=== PATIENT | female | born 1950 | race Caucasian/White ===

== ENCOUNTER 2017-06-23 09:44 | Inpatient (IN) | payer OTHER ==
[2017-06-23 09:55] VITALS: BMI 35.2
--- NOTE | 2017-06-23 10:00 | PDOC ---
History of Present Illness - General Chief Complaint: Chest Pain Stated Complaint: CHEST PAIN Time Seen by Provider: 06/23/17 10:00 History Source: Patient - History of Present Illness Initial Comments: 66 year old female with PMH of cigarette smoking, hypertension, hypercholesterolemia, pulmonary emboli (IVC clip and on asa + plavix), and HI ( 4 stent placement in 01/2016 with cath in 01/17 demonstrating a fracture of one stent) who presents to the emergency department via EMS for chest pain and SOB since yesteday. States that she has been slightly SOB with worsenign bilateral pitting edema for the past three days and noticed an episode of central substernal, non-radiaiting, non-pleuritic, non-exertional and resolved during her sleep. Her pharmacist technician is Dr. Bosch who is affiliated with Dr. Dela Cruz. Denies recent fevers, chills, nausea, vomiting, or diarrhea. 06/23/17 12:15 Past History - Past Medical History Allergies/Adverse Reactions: Allergies Allergy/AdvReac Type Severity Reaction Status Date / Time No Known Allergies Allergy Unverified 06/23/17 09:50 Home Medications: Ambulatory Orders Albuterol Sulfate Inhaler - [Ventolin Hfa Inhaler -] 1 - 2 inh PO QID 06/23/17 Atorvastatin Ca [Lipitor] 80 mg PO HS 06/23/17 Budesonide/Formeterol Fumarate [SYMBICORT 80/4.5mcg -] 1 inh PO DAILY 06/23/17 Clopidogrel Bisulfate [Clopidogrel] 75 mg PO DAILY 06/23/17 Ipratropium/Albuterol Sulfate [Combivent Respimat Inhal [place]] 4 gm IH DAILY Isosorbide Mononitrate [Imdur -] 60 mg PO DAILY 06/23/17 Lisinopril/Hydrochlorothiazide [Lisinopril-Hctz 10-12.5 mg Tab] 1 each PO DAILY 06/23/17 Tiotropium [place] [Spiriva] 1 inh IH DAILY 06/23/17 Cardiac Disorders: Yes (HI) COPD: Yes HTN: Yes Hypercholesterolemia: Yes - Surgical History Abdominal Surgery: Yes (oopherectomy) Appendectomy: Yes Cardiac Surgery: (PE CLIP SURGERY, 4 stents) - Suicide/Smoking/Psychosocial Hx Smoking History: Former smoker Have you smoked in the past 12 months: No If you are a former smoker, when did you quit?: 2002 Information on smoking cessation initiated: No Hx Alcohol Use: No Drug/Substance Use Hx: No Substance Use Type: None Review of Systems - Review of Systems Constitutional: No: Chills, Diaphoresis, Fever HEENTM: No: Blurred Vision, Recent change in vision Respiratory: Yes: Shortness of Breath, SOB with Exertion. No: Cough Cardiac (ROS): Yes: Chest Pain, Irregular Heart Rate, Palpitations, Chest Tightness. No: Lightheadedness ABD/GI: No: Diarrhea, Nausea, Vomiting : No: Dysuria, Discharge, Incontinence Musculoskeletal: No: Muscle Pain, Muscle Weakness Integumentary: No: Erythema, Flushing, Lesions Neurological: No: Numbness, Paresthesia, Weakness *Physical Exam - Vital Signs Last Vital Signs Temp Pulse Resp BP Pulse Ox 97.8 F 94 H 18 157/81 100 06/23/17 09:50 06/23/17 09:50 06/23/17 09:50 06/23/17 09:50 06/23/17 09:50 - Physical Exam General Appearance: Yes: Nourished, Appropriately Dressed. No: Apparent Distress HEENT: positive: EOMI, TAD, Normal ENT Inspection, Normal Voice Neck: positive: Trachea midline, Normal Thyroid, Supple. negative: Tender, Rigid Respiratory/Chest: positive: Lungs Clear. negative: Chest Tender, Normal Breath Sounds (Slightly diminished breath sounds bilaterally but non-focal and no wheezes, rales, or rhonchi), Respiratory Distress, Accessory Muscle Use Cardiovascular: positive: Regular Rhythm, Regular Rate, Edema (3+ pitting edema to the knees) Gastrointestinal/Abdominal: positive: Normal Bowel Sounds, Flat, Soft. negative : Tender Musculoskeletal: positive: Normal Inspection. negative: Decreased Range of Motion Extremity: positive: Normal Capillary Refill, Normal Inspection, Normal Range of Motion Integumentary: positive: Normal Color, Dry, Warm Neurologic: positive: Fully Oriented, Alert, Normal Mood/Affect, Normal Response , Motor Strength 5/5 ED Treatment Course - LABORATORY CBC & Chemistry Diagram: 06/23/17 11:12 06/23/17 12:52 Medical Decision Making - Medical Decision Making 66 year old female with significant cardiac history without EKG changes compared to 01/17/16 (NSR, nonspecific T wave abnormality, normal axis). Troponin and other labs negative with CXR not demonstrating any pathology. Spoke to Dr. Bosch at [facility] (her pharmacist technician) and he recommended bringing her in and will discuss the case with Dr. Estrada. This is most concerning for unstable angina given her symptoms are not related to exertion and she has multiple stents in place. Admitted patient to [facility] for [facility] Villanueva. 06/23/17 14:33 *DC/Admit/Observation/Transfer Diagnosis at time of Disposition: Chest pain Qualifiers: Chest pain type: unspecified Qualified Code(s): R07.9 - Chest pain, unspecified - Discharge Dispostion Condition at time of disposition: Stable Admit: Yes - Referrals Referrals: Kemal Thompson MD [Primary Care Provider] - - Patient Instructions - Post Discharge Activity
[2017-06-23] MEDS ORDERED: IPRATROPIUM BR 0.02% 0.5 MG/2.5 ML VIAL.NEB. NEB ONE (11:08)
[2017-06-23] MEDS ORDERED: ALBUTEROL SO4 2.5/IPRATROPIUM 0.5 INH SOL 3 ML VIAL.NEB. NEB ONE (11:15)
[2017-06-23 11:21] LABS: BASO % 0.7 % (0-2.0); EOS % 3.3 % (0-4.5); HEMATOCRIT 40.7 % (32.4-45.2); HEMOGLOBIN 13.8 GM/dL (10.7-15.3); LYMPH % 17.6 % (8-40); MCH 29.2 pg (25.7-33.7); MCHC 34.1 g/dl (32.0-36.0); MEAN CELL VOLUME 85.7 fl (80-96); MONO % 5.4 % (3.8-10.2); PLATELET COUNT 221 K/MM3 (134-434); RBC 4.74 M/mm3 (3.60-5.2); WHITE BLOOD COUNT 6.3 K/mm3 (4.0-10.0)
[2017-06-23 11:35] LABS: INR 1.04 (0.82-1.09); PROTHROMBIN TIME (PATIENT) 11.8 SEC (9.98-11.88)
[2017-06-23 11:38] LABS: ACTIVATED PTT 36.7 SECONDS (26.9-34.4)
--- NOTE | 2017-06-23 11:54 | PDOC ---
Attending Attestation - Resident Resident Name: Cynthia Bee - ED Attending Attestation I have performed the following: I have examined & evaluated the patient, The case was reviewed & discussed with the resident, I agree w/resident's findings & plan, Exceptions are as noted - HPI HPI: 06/23/17 11:55 66 F with h/o HTN, HLD, CAD s/p DC 2007 s/p multiple stents, CHF, PAD, COPD, presenting to ED with SOB and CP x 1 day. Pt states that the pain began at rest today. There is associated SOB but pt states that it does not feel like her COPD. She endorses mild leg swelling. Denies F/C. Denies recent travel/ immobilization. States that the pain is similar to her prior DC. - Physicial Exam PE: 06/23/17 12:01 "GENERAL: Awake, alert, and fully oriented, in no acute distress HEAD: No signs of trauma EYES: PERRLA, EOMI, sclera anicteric, conjunctiva clear ENT: Auricles normal inspection, hearing grossly normal, nares patent, oropharynx clear without exudates. Moist mucosa NECK: Nontender, no stepoffs, Normal ROM, supple, no lymphadenopathy, JVD, or masses LUNGS: Breath sounds equal, clear to auscultation bilaterally. No wheezes, and no crackles HEART: Regular rate and rhythm, normal S1 and S2, no murmurs, rubs or gallops ABDOMEN: Soft, nontender, normoactive bowel sounds. No guarding, no rebound. No masses EXTREMITIES: +1 PE BLE NEUROLOGICAL: Cranial nerves II through XII intact. 5/5 strength and sensation in all extremities, Normal speech, normal gait, normal cerebellar function SKIN: Warm, Dry, normal turgor, no rashes or lesions noted. " - Medical Decision Making 06/23/17 12:01 66 F with chest pain/SOB x 1 day. Pt has h/o DC and states pain is similar to her DC, but her EKG today is unremarkable. Pt also with mild pitting edema of legs. Consider CHF exacerbation. Lungs clear but will trial nebulizers given h/ o COPD. - Labs, BNP, trop - CXR - Atrovent (hold albuterol given cardiac history) - Cards consult - Admit
[2017-06-23 13:40] LABS: ALBUMIN 3.8 g/dl (3.4-5.0); ALK PHOS 90 U/L (45-117); ANION GAP 9 (8-16); BILIRUBIN,TOTAL 0.8 mg/dL (0.2-1.0); BLOOD UREA NITROGEN 16 mg/dL (7-18); CALCIUM 9.3 mg/dL (8.5-10.1); CHLORIDE 106 mmol/L (98-107); CO2 27 mmol/L (21-32); CREATININE 0.6 mg/dL (0.55-1.02); GLUCOSE,RANDOM 101 mg/dL (74-106); SGPT/ALT 41 U/L (12-78); SODIUM 142 mmol/L (136-145); TOT PROT 7.1 g/dl (6.4-8.2)
[2017-06-23 13:43] LABS: N-TERMINAL BNP 170.72 pg/ml (5-125)
[2017-06-23 13:45] LABS: POTASSIUM 4.7 mmol/L (3.5-5.1); SGOT/AST 42 U/L (15-37)
[2017-06-23] MEDS ORDERED: NITROGLYCERIN SUBLINGUAL 1/200 0.3 MG BTL SL ONE (15:16)
--- NOTE | 2017-06-23 15:44 | EKG ---
Test Reason : Blood Pressure : / mmHG Vent. Rate : 098 BPM Atrial Rate : 098 BPM P-R Int : 150 ms QRS Dur : 086 ms QT Int : 370 ms P-R-T Axes : 056 -09 021 degrees QTc Int : 472 ms NORMAL SINUS RHYTHM POSSIBLE LEFT ATRIAL ENLARGEMENT INFERIOR INFARCT , AGE UNDETERMINED ABNORMAL ECG WHEN COMPARED WITH ECG OF 17-JAN-2016 06:17, INFERIOR INFARCT IS NOW PRESENT NONSPECIFIC T WAVE ABNORMALITY NO LONGER EVIDENT IN LATERAL LEADS QT HAS LENGTHENED Confirmed by SONJA GONSALES MD ([id number]) on 06/23/2017 3:43:51 PM Referred By: Confirmed By:SONJA GONSALES MD
--- NOTE | 2017-06-23 15:46 | CON.CARD ---
Consult Consult Specialty:: Cardiology Referred by:: Dr. Villanueva Reason for Consultation:: chest pain - History of Present Illness Chief Complaint: Chest pain History of Present Illness: ER record reviewed: " 66 year old female with PMH of cigarette smoking, hypertension, hypercholesterolemia, pulmonary emboli (IVC clip and on asa + plavix), and ND ( 4 stent placement in 01/2016 with cath in 01/17 demonstrating a fracture of one stent) who presents to the emergency department via EMS for chest pain and SOB since yesteday. States that she has been slightly SOB with worsenign bilateral pitting edema for the past three days and noticed an episode of central substernal, non-radiaiting, non-pleuritic, non-exertional and resolved during her sleep. Her food beverage supervisor is Dr. Bosch who is affiliated with Dr. Dela Cruz. 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 She has chronic stable angina requiring nitro; comes to ER now after episodes of substernal chest pressure last night lasting up to 15 minutes associated with mild dyspnea and nausea. Waxing and waning- felt like her prior ND. Also c/o one week of CAMPBELL and worsening b/l le edema. Chronic palpitations, evaluated by Dr. Bosch with Holter- no AFIB reported. No fever or chills. As per Dr. Bosch, her primary food beverage supervisor, she has chronic chest pain complaints which are difficult to evaluate. - History Source History Provided By: Patient Limitations to Obtaining History: No Limitations - Past Medical History Cardio/Vascular: Yes: HTN, Hyperlipdemia Pulmonary: Yes: COPD, Pulmonary Embolus (hx of IVC filter) Gastrointestinal: No: Ascites, Cancer, Constipation, Crohn's Disease, Diverticulitis, Diverticulosis, Esophageal Varices, Gastritis, GERD, GI Bleed, Hemorrhoids, Hiatal Hernia, Inflamatory Bowel Disease, Irritable Bowel Disease, Pancreatitis, Peptic Ulcer Disease, Ulcerative Colitis, Other Hepatobiliary: No: Cirrhosis, Cholelithiasis, Cholecystitis, Choledocholithiasis , Hepatitis A, Hepatitis B, Hepatitis C, Other Renal/: No: Renal Failure, Renal Inusuff, BPH, Cancer, Hematuria, Hemodialysis , Neurogenic Bladder, Renal Calculi, UTI, Other Heme/Onc: No: Anemia, B12 Deficiency, Bleeding Disorder, Cancer, Current Chemotherapy, Current Radiation Therapy, Hemochromatosis, Hypercoaguable State, Myeloproliferative Synd, Sickle Cell Disease, Sickle Cell Trait, Thrombocytopenia, Other Infectious Disease: No: AIDS, C-Diff, Herpes Zoster, HIV, MRSA, STD's, Tuberculosis, VREF, Other Psych: No: Addictions, Anxiety, Bipolar, Depression, Panic, Psychosis, Schizophrenia, Other Musculoskeletal: No: Bursitis, Chronic low back pain, Hemiparesis, Hemiplegia, Osteoarthritis, Paraplegia, Other Rheumatology: No: Fibromyalgia, Gout, Lupus, Rheumatoid Arthritis, Sarcoidosis, Vasculitis, Other ENT: No: Allergic Rhinitis, Sinusitis, Other Endocrine: No: [place]'s Disease, Demetris's Disease, Diabetes Insipidus, Diabetes Mellitus, Hyperparathyroidism, Hyperthyroidism, Hypothyroidism, Osteopenia, SIADH, Other - Past Surgical History Past Surgical History: Yes: Hysterectomy - Alcohol/Substance Use Hx Alcohol Use: No - Smoking History Smoking history: Former smoker Have you smoked in the past 12 months: No If you are a former smoker, when did you quit?: 2002 - Social History History of Recent Travel: No Home Medications - Allergies Allergies/Adverse Reactions: Allergies Allergy/AdvReac Type Severity Reaction Status Date / Time No Known Allergies Allergy Unverified 06/23/17 09:50 - Home Medications Home Medications: Ambulatory Orders Albuterol Sulfate Inhaler - [Ventolin Hfa Inhaler -] 1 - 2 inh PO QID 06/23/17 Atorvastatin Ca [Lipitor] 80 mg PO HS 06/23/17 Budesonide/Formeterol Fumarate [SYMBICORT 80/4.5mcg -] 1 inh PO DAILY 06/23/17 Clopidogrel Bisulfate [Clopidogrel] 75 mg PO DAILY 06/23/17 Ipratropium/Albuterol Sulfate [Combivent Respimat Inhal [place]] 4 gm IH DAILY Isosorbide Mononitrate [Imdur -] 60 mg PO DAILY 06/23/17 Lisinopril/Hydrochlorothiazide [Lisinopril-Hctz 10-12.5 mg Tab] 1 each PO DAILY 06/23/17 Tiotropium [place] [Spiriva] 1 inh IH DAILY 06/23/17 Family Disease History - Family Disease History Family Disease History: CA: Brother (lung) Review of Systems Findings/Remarks: See HPI - Review of Systems Constitutional: reports: No Symptoms Eyes: reports: No Symptoms HENT: reports: No Symptoms Neck: reports: No Symptoms Cardiovascular: reports: Chest Pain, Palpitations, Shortness of Breath Respiratory: reports: SOB on Exertion Gastrointestinal: denies: No Symptoms, Abdominal Pain, Bloating, Constipation, Diarrhea, Dysphagia, Indigestion, Melena, Nausea, Rectal Bleeding, Vomiting, Vomiting Blood, Other Genitourinary: denies: No Symptoms, Burning, Discharge, Dysuria, Flank Pain, Frequency, Hematuria, Incontinence, Lesions, Menses, Pain, Testicular Mass, Testicular Pain, Testicular Swelling, Urgency, Vaginal Bleeding, Other Breasts: denies: No Symptoms Reported, See HPI, Breast Implants, Discharge from Nipple, Lumps, Pain, Skin Changes, Other Musculoskeletal: denies: No Symptoms, Back Pain, Crepitus, Decreased ROM, Extremity Pain, Joint Pain, Joint Swelling, Muscle Pain, Muscle Cramps, Muscle Weakness, Other Neurological: denies: No Symptoms, Change in LOC, Change in Speech, Confusion, Dizziness, Headache, Incoordination, Numbness, Parasthesia, Pre-Existing Deficit , Seizure, Syncope, Tremors, Unsteady Gait, Weakness, Other Endocrine: denies: No Symptoms, Excessive Sweating, Flushing, Increased Hunger, Increased Thirst, Intolerance to Cold, Intolerance to Heat, Unexplained Weight Gain, Unexplained Weight Loss, Other Hematology/Lymphatic: denies: No Symptoms, Easily Bruised, Excessive Bleeding, Swollen Glands, Other Psychiatric: denies: No Symptoms, Altered Sleep Pattern, Anxiety, Depression, Hallucinations, Panic, Paranoia, Suicidal, Other - Risk Factors Known Risk Factors: Yes: Hypercholesterolemia, Smoking, Other (known CAD) Vital Signs: Vital Signs Temperature 97.8 F 06/23/17 09:50 Pulse Rate 84 06/23/17 13:48 Respiratory Rate 18 06/23/17 13:48 Blood Pressure 142/70 06/23/17 13:48 O2 Sat by Pulse Oximetry (%) 100 06/23/17 13:48 Constitutional: Yes: Calm Eyes: Yes: Conjunctiva Clear Neck: Yes: Supple Respiratory: Yes: CTA Bilaterally (no rales or wheezign) Gastrointestinal: Yes: Soft (non-tender), Abdomen, Obese Cardiovascular: Yes: Regular Rate and Rhythm JVD: No Carotid Bruit: No PMI: Non-Displaced Edema: Yes Edema: LLE: 1+, RLE: 1+ Peripheral Pulses WNL: Yes Neurological: Yes: Alert, Oriented ...Motor Strength: WNL - Other Data Labs, Other Data: CBC, BMP 06/23/17 11:12 06/23/17 12:52 INR, PTT INR 1.04 (0.82-1.09) 06/23/17 11:12 Troponin, BNP 06/23/17 06/23/17 06/23/17 11:12 12:52 12:52 Troponin I Cancelled Cancelled < 0.02 B-Natriuretic Peptide Cancelled Cancelled 170.72 H Troponin, BNP 06/23/17 06/23/17 06/23/17 11:12 12:52 12:52 Troponin I Cancelled Cancelled < 0.02 B-Natriuretic Peptide Cancelled Cancelled 170.72 H Laboratory Tests 06/23/17 06/23/17 06/23/17 11:12 11:12 12:52 WBC 6.3 D Hgb 13.8 Plt Count 221 PT with INR 11.80 INR 1.04 PTT (Actin FS) 36.7 H Sodium 142 Potassium 4.7 Chloride 106 Anion Gap 9 BUN 16 Creatinine 0.6 Creat Clearance w eGFR > 60 Total Bilirubin 0.8 D AST 42 H ALT 41 Alkaline Phosphatase 90 Creatine Kinase 220 H Creatine Kinase Index 0.8 CK-MB (CK-2) 1.895 Troponin I < 0.02 B-Natriuretic Peptide 170.72 H NSR, inferior Qs c/w old IWMI, no acute ST changes LAE When c/w previous ECG 2015, inferior Qs now present suggestive of interval likely chronic IWMI Echo: Pending Prior Cardiac Procedures: PTCA with Stent Ejection Fraction %: LVEF > or = 40 % Imaging - Results Chest X-ray: Image Reviewed (No infiltrates or effusions) EKG: Image Reviewed Problem List - Problems (1) Unstable angina Code(s): I20.0 - UNSTABLE ANGINA (2) CAD (coronary artery disease) Code(s): I25.10 - ATHSCL HEART DISEASE OF [place] CORONARY ARTERY W/O ANG PCTRS Qualifiers: Coronary Disease-Associated Artery/Lesion type: [place] artery (3) History of pulmonary embolism Code(s): Z86.711 - PERSONAL HISTORY OF PULMONARY EMBOLISM (4) Presence of IVC filter Code(s): Z95.828 - PRESENCE OF OTHER VASCULAR IMPLANTS AND GRAFTS (5) COPD (chronic obstructive pulmonary disease) Code(s): J44.9 - CHRONIC OBSTRUCTIVE PULMONARY DISEASE, UNSPECIFIED Qualifiers: COPD type: chronic bronchitis (6) Other pulmonary aspergillosis Code(s): B44.1 - OTHER PULMONARY ASPERGILLOSIS Assessment/Plan IMP: Known CAD with prior RCA dissection (iatrogenic) requiring several stents 2016 with sx of unstable angina Known RCA stent fracture 2017, managed medically Moderate residual LAD disease History of PEs, IVC filter COPD REC: 1. Admit to telemetry for serial cardiac enzymes 2. Echo done shows grossly normal LV fxn, no evidence of sig. PHTN, no pericardial effusion. Low clinical supicion for pulmonary embolism 3. Continue ASA, Plavi. Start Lovenox and trend cardiac enzymes and monitor serial ECGs 4. Will need repeat ischemic evaluation, likely with cath prior to discharge. Thank you.
[2017-06-23] MEDS ORDERED: ACETAMINOPHEN 325 MG TABLET (FP) PO PRN (15:49)
[2017-06-23] MEDS ORDERED: NITROGLYCERIN SUBLINGUAL 1/150 0.4 MG TAB ONE (15:50)
--- NOTE | 2017-06-23 15:53 | HP ---
Admitting History and Physical - Primary Care Physician PCP: Callie Villanueva - Admission Chief Complaint: chest pain. History of Present Illness: Pt seen in er. chart reviewed. Er records--reviewed. 66 year old female with PMH of cigarette smoking, hypertension, hypercholesterolemia, pulmonary emboli (IVC clip and on asa + plavix), and [place] ( 4 stent placement in 01/2016 with cath in 01/17 demonstrating a fracture of one stent) who presents to the emergency department via EMS for chest pain and SOB since yesteday. States that she has been slightly SOB with worsenign bilateral pitting edema for the past three days and noticed an episode of central substernal, non-radiaiting, non-pleuritic, non-exertional and resolved during her sleep. Her signal operator linguist is Dr. Bosch who is affiliated with Dr. Dela Cruz. Denies recent fevers, chills, nausea, vomiting, or diarrhea." Case discussed with er physician. Pts private pmd- Pts ekg ok. cm - ve x1 Pt to be admitted to tele . History Source: Patient Limitations to Obtaining History: No Limitations - Past Medical History Cardiovascular: Yes: HTN, Hyperlipdemia Pulmonary: Yes: COPD, Pulmonary Embolus - Smoking History Smoking history: Former smoker Have you smoked in the past 12 months: No If you are a former smoker, when did you quit?: 2002 - Alcohol/Substance Use Hx Alcohol Use: No Home Medications - Allergies Allergies/Adverse Reactions: Allergies Allergy/AdvReac Type Severity Reaction Status Date / Time No Known Allergies Allergy Unverified 06/23/17 09:50 - Home Medications Home Medications: Ambulatory Orders Albuterol Sulfate Inhaler - [Ventolin Hfa Inhaler -] 1 - 2 inh PO QID 06/23/17 Atorvastatin Ca [Lipitor] 80 mg PO HS 06/23/17 Budesonide/Formeterol Fumarate [SYMBICORT 80/4.5mcg -] 1 inh PO DAILY 06/23/17 Clopidogrel Bisulfate [Clopidogrel] 75 mg PO DAILY 06/23/17 Ipratropium/Albuterol Sulfate [Combivent Respimat Inhal [place]] 4 gm IH DAILY Isosorbide Mononitrate [Imdur -] 60 mg PO DAILY 06/23/17 Lisinopril/Hydrochlorothiazide [Lisinopril-Hctz 10-12.5 mg Tab] 1 each PO DAILY 06/23/17 Tiotropium [place] [Spiriva] 1 inh IH DAILY 06/23/17 Family Disease History - Family Disease History Family Disease History: CA: Brother (lung) Review of Systems - Review of Systems Constitutional: reports: Weakness Eyes: reports: No Symptoms Neck: reports: No Symptoms Cardiovascular: reports: Chest Pain, Shortness of Breath Respiratory: reports: SOB Gastrointestinal: reports: No Symptoms Genitourinary: reports: No Symptoms Neurological: reports: No Symptoms Psychiatric: reports: Anxiety Physical Examination Vital Signs: Vital Signs Temperature 97.8 F 06/23/17 09:50 Pulse Rate 84 06/23/17 13:48 Respiratory Rate 18 06/23/17 13:48 Blood Pressure 142/70 06/23/17 13:48 O2 Sat by Pulse Oximetry (%) 100 06/23/17 13:48 Constitutional: Yes: No Distress, Obese Eyes: Yes: Conjunctiva Clear Neck: Yes: Supple Cardiovascular: Yes: Regular Rate and Rhythm Respiratory: Yes: CTA Bilaterally. No: Diminished Gastrointestinal: Yes: Soft Edema: No Neurological: Yes: Alert Psychiatric: Yes: Alert Labs: CBC, BMP 06/23/17 11:12 06/23/17 12:52 Imaging - Results Chest X-ray: Report Reviewed EKG: Report Reviewed (bed side -- echo -- reviewed with Dr. Michaud - when tech was doing echo.) Problem List - Problems (1) Obesity Code(s): E66.9 - OBESITY, UNSPECIFIED (2) CAD (coronary artery disease) Code(s): I25.10 - ATHSCL HEART DISEASE OF [place] CORONARY ARTERY W/O ANG PCTRS Qualifiers: Coronary Disease-Associated Artery/Lesion type: [place] artery (3) COPD (chronic obstructive pulmonary disease) Code(s): J44.9 - CHRONIC OBSTRUCTIVE PULMONARY DISEASE, UNSPECIFIED Qualifiers: COPD type: chronic bronchitis (4) Chest pain Code(s): R07.9 - CHEST PAIN, UNSPECIFIED Qualifiers: Chest pain type: unspecified Qualified Code(s): R07.9 - Chest pain, unspecified (5) History of pulmonary embolism Code(s): Z86.711 - PERSONAL HISTORY OF PULMONARY EMBOLISM (6) Presence of IVC filter Code(s): Z95.828 - PRESENCE OF OTHER VASCULAR IMPLANTS AND GRAFTS (7) Hyperlipidemia Code(s): E78.5 - HYPERLIPIDEMIA, UNSPECIFIED (8) Hypertension Code(s): I10 - ESSENTIAL (PRIMARY) HYPERTENSION (9) Shortness of breath Code(s): R06.02 - SHORTNESS OF BREATH Assessment/Plan Discussed with Dr. Estrada. Monitor on tele serial cms f/u labs. meds reviewed . tom written. Lovenox to be added-- per cardiology recommendation. extensive cardiac h/o as discussed with Dr. Ramirez. Will follow cc time 40 min.
[2017-06-23] MEDS ORDERED: ENOXAPARIN NA (PORCINE) 80 MG/0.8 ML DISP.SYRIN SQ ONE (16:45)
[2017-06-23] MEDS ORDERED: ENOXAPARIN NA (PORCINE) 80 MG/0.8 ML DISP.SYRIN SQ SCH (16:45)
[2017-06-23] MEDS ORDERED: PT OWN MED DRAWER 7, Y5N ONE (21:37)
[2017-06-23] MEDS ORDERED: ASPIRIN 81 MG CHEWABLE TABLETS PO ONE (21:43)
[2017-06-23] MEDS ORDERED: HEPARIN NA (PORCINE) 5,000 UNITS/ML 1ML VIAL SQ SCH (22:00)
[2017-06-23] MEDS: BUDESONIDE/FORMETEROL FUMARATE 80/4.5 mcg INHALER IH SCH (22:55)
[2017-06-23] MEDS: ATORVASTATIN CA 80 MG TABLET (FP) PO SCH (22:56)
[2017-06-23] MEDS: CLOPIDOGREL BISULFATE 75 MG TABLET (FP) PO SCH (22:56)
[2017-06-24] MEDS ORDERED: ALBUTEROL SO4 2.5/IPRATROPIUM 0.5 INH SOL 3 ML VIAL.NEB. NEB PRN (00:16)
[2017-06-24] MEDS ORDERED: PT OWN MED DRAWER 7, Y5N ONE ×2 (06:41→21:18)
[2017-06-24 07:24] LABS: BASO % 0.7 % (0-2.0); EOS % 4.1 % (0-4.5); HEMATOCRIT 35.3 % (32.4-45.2); HEMOGLOBIN 12.3 GM/dL (10.7-15.3); LYMPH % 31.2 % (8-40); MCH 29.8 pg (25.7-33.7); MCHC 34.8 g/dl (32.0-36.0); MEAN CELL VOLUME 85.7 fl (80-96); PLATELET COUNT 193 K/MM3 (134-434); RBC 4.12 M/mm3 (3.60-5.2); RDW 14.1 % (11.6-15.6); WHITE BLOOD COUNT 5.8 K/mm3 (4.0-10.0)
[2017-06-24 07:41] LABS: ALBUMIN 3.3 g/dl (3.4-5.0); ANION GAP 8 (8-16); CHLORIDE 107 mmol/L (98-107); CO2 27 mmol/L (21-32); POTASSIUM 3.4 mmol/L (3.5-5.1); SODIUM 142 mmol/L (136-145)
[2017-06-24 07:50] LABS: ALK PHOS 77 U/L (45-117); BILIRUBIN,TOTAL 0.5 mg/dL (0.2-1.0); BLOOD UREA NITROGEN 15 mg/dL (7-18); CALCIUM 8.9 mg/dL (8.5-10.1); CHOLESTEROL 133 mg/dL (50-200); CREATININE 0.6 mg/dL (0.55-1.02); GLUCOSE,RANDOM 86 mg/dL (74-106); HDL CHOLESTEROL 45 mg/dL (40-60); LDL CHOLESTEROL (ONLY SJRH) 78 mg/dL (5-100); SGOT/AST 23 U/L (15-37); SGPT/ALT 30 U/L (12-78); TOT PROT 6.2 g/dl (6.4-8.2); TRIGLYCERIDES 114 mg/dL (35-160)
--- NOTE | 2017-06-24 09:21 | PN ---
Progress Note, Physician Chief Complaint: Enzymes negative thus far. TELE: NSR, no events. ECHO: Mild to moderate IL HK, overall preserved EF. no sig RV enlargement. No sig PHTN, no effusion. She states she had another episode of SSCP last night after coming to floor. Did not notify RN Lasted 5-10 minutes and subsided spontaneously History of Present Illness: 66F wih COPD, pulmonary aspegillus, recurrent PEs in the s/p IVC filter, CAD s/p PR 2006 medically treated, cath 2016 ([facility]) c/b RCA dissection requiring multiple stents, groin hematoma, subsequent 2017 after abnl stress at [place] showing RCA stent fracture (non-obstructive) and moderate LAD disease. She has chronic stable angina requiring nitro; comes to ER now after episodes of substernal chest pressure last night lasting up to 15 minutes associated with mild dyspnea and nausea. Waxing and waning- felt like her prior PR. Also c/o one week of CAMPBELL and worsening b/l le edema. Chronic palpitations, evaluated by Dr. Bosch with Holter- no AFIB reported. No fever or chills. As per Dr. Bosch, her primary sheet rock installation helper, she has chronic chest pain complaints which are difficult to evaluate. - Current Medication List Current Medications: Active Medications Acetaminophen (Tylenol -) 650 mg PO Q6H PRN PRN Reason: PAIN Albuterol/Ipratropium (Duoneb -) 1 amp NEB QID PRN PRN Reason: WHEEZING Aspirin (Asa -) 81 mg PO DAILY [facility] Atorvastatin Calcium (Lipitor -) 80 mg PO HS [facility] Last Admin: 06/23/17 22:56 Dose: 80 mg Budesonide/Formoterol Fumarate (Symbicort 80/4.5mcg -) 2 puff IH BID [facility] Last Admin: 06/23/17 22:55 Dose: 2 puff Clopidogrel Bisulfate (Plavix -) 75 mg PO DAILY@2200 [facility] Last Admin: 06/23/17 22:56 Dose: 75 mg Enoxaparin Sodium (Lovenox -) 80 mg SQ BID [facility] Hydrochlorothiazide (Hctz -) 12.5 mg PO DAILY [facility] Isosorbide Mononitrate (Imdur -) 60 mg PO DAILY [facility] Lisinopril (Prinivil) 10 mg PO DAILY [facility] Tiotropium [place] (Spiriva -) 1 puff IH DAILY [facility] - Objective Vital Signs: Vital Signs Temperature 98.4 F 06/24/17 09:00 Pulse Rate 83 06/24/17 09:00 Respiratory Rate 20 06/24/17 09:00 Blood Pressure 124/66 06/24/17 09:00 O2 Sat by Pulse Oximetry (%) 98 06/24/17 09:00 Constitutional: Yes: No Distress Eyes: Yes: Conjunctiva Clear Cardiovascular: Yes: Regular Rate and Rhythm Respiratory: Yes: CTA Bilaterally (no rales or wheezing) Gastrointestinal: Yes: Soft (non-tender) Edema: No Neurological: Yes: Alert, Oriented Labs: CBC, BMP 06/24/17 05:10 06/24/17 05:10 INR, PTT INR 1.04 (0.82-1.09) 06/23/17 11:12 Laboratory Tests 06/23/17 06/23/17 06/24/17 12:52 17:45 05:10 WBC 5.8 Hgb 12.3 D Plt Count 193 Sodium Potassium Creatinine Creatine Kinase 220 H 181 Troponin I < 0.02 < 0.02 06/24/17 05:10 WBC Hgb Plt Count Sodium 142 Potassium 3.4 L Creatinine 0.6 Creatine Kinase Pending Troponin I - ....Imaging EKG: Image Reviewed Problem List - Problems (1) Unstable angina Code(s): I20.0 - UNSTABLE ANGINA (2) CAD (coronary artery disease) Code(s): I25.10 - ATHSCL HEART DISEASE OF [place] CORONARY ARTERY W/O ANG PCTRS Qualifiers: Coronary Disease-Associated Artery/Lesion type: [place] artery (3) History of pulmonary embolism Code(s): Z86.711 - PERSONAL HISTORY OF PULMONARY EMBOLISM (4) Presence of IVC filter Code(s): Z95.828 - PRESENCE OF OTHER VASCULAR IMPLANTS AND GRAFTS (5) COPD (chronic obstructive pulmonary disease) Code(s): J44.9 - CHRONIC OBSTRUCTIVE PULMONARY DISEASE, UNSPECIFIED Qualifiers: COPD type: chronic bronchitis (6) Other pulmonary aspergillosis Code(s): B44.1 - OTHER PULMONARY ASPERGILLOSIS Assessment/Plan IMP: Known CAD with prior RCA dissection (iatrogenic) requiring several stents 2016 with sx of unstable angina Known RCA stent fracture 2017, managed medically Moderate residual LAD disease History of PEs, IVC filter COPD REC: 1. Continue Lovenox BID 2. ASA, Plavix, statin Add Beta rebekah, continue Imdur 3. In light of ongoing sx, will plan for transfer to [place] for cath. To remain on telemetry until transfer. Called and spoke to Dr. Mcallister who accepted patient for tx; cath to be done by Dr. Jae Bee at Dr. Bosch's request
[2017-06-24] MEDS ORDERED: ASPIRIN COATED 81 MG TABLET.EC PO SCH (10:00)
[2017-06-24] MEDS ORDERED: CLOPIDOGREL BISULFATE 75 MG TABLET (FP) PO SCH (10:00)
[2017-06-24] MEDS ORDERED: PATIENT'S OWN MEDICATION (NON-FORMULARY) (Lisinopril/Hydrochlorothiazide [Lisinopril-Hctz PO SCH (10:00)
[2017-06-24] MEDS ORDERED: PATIENT'S OWN MEDICATION (NON-FORMULARY) (Ipratropium/Albuterol Sulfate [Combivent Respima IH SCH (10:00)
[2017-06-24] MEDS: ISOSORBIDE MONONITRATE 60 MG TAB.SR.24H (FP) PO SCH (10:17)
[2017-06-24] MEDS: BUDESONIDE/FORMETEROL FUMARATE 80/4.5 mcg INHALER IH SCH ×2 (10:17→21:46)
[2017-06-24] MEDS: METOPROLOL TARTRATE 25 MG TABLET (FP) PO SCH ×2 (10:17→21:19)
[2017-06-24] MEDS: LISINOPRIL 10 MG TABLET (FP) PO SCH (10:17)
[2017-06-24] MEDS: HYDROCHLOROTHIAZIDE 12.5 MG CAPSULE (FP) PO SCH (10:17)
[2017-06-24] MEDS: ASPIRIN 81 MG CHEWABLE TABLETS PO SCH (10:17)
[2017-06-24] MEDS: ENOXAPARIN NA (PORCINE) 80 MG/0.8 ML DISP.SYRIN SQ SCH ×2 (10:19→21:19)
[2017-06-24] MEDS: TIOTROPIUM BROMIDE 18 MCG CAPSULES IH SCH (10:27)
[2017-06-24] MEDS: POTASSIUM CHLORIDE TABS 20 MEQ TABLET.ER (FP) PO SCH (11:27)
--- NOTE | 2017-06-24 11:55 | PN ---
Progress Note, Physician Chief Complaint: had chest pain this AM no palpitations or SOB - Current Medication List Current Medications: Active Medications Acetaminophen (Tylenol -) 650 mg PO Q6H PRN PRN Reason: PAIN Albuterol/Ipratropium (Duoneb -) 1 amp NEB QID PRN PRN Reason: WHEEZING Aspirin (Asa -) 81 mg PO DAILY [facility]S [facility] Last Admin: 06/24/17 10:17 Dose: 81 mg Atorvastatin Calcium (Lipitor -) 80 mg PO HS [facility] 234 BEDS AT [facility] Last Admin: 06/23/17 22:56 Dose: 80 mg Budesonide/Formoterol Fumarate (Symbicort 80/4.5mcg -) 2 puff IH BID [facility] 234 BEDS AT [facility] Last Admin: 06/24/17 10:17 Dose: 2 puff Clopidogrel Bisulfate (Plavix -) 75 mg PO DAILY@2200 [facility]CLUDE 234 BEDS AT [facility] Last Admin: 06/23/17 22:56 Dose: 75 mg Enoxaparin Sodium (Lovenox -) 80 mg SQ BID [facility]CLUDE 234 BEDS AT [facility] Last Admin: 06/24/17 10:19 Dose: 80 mg Hydrochlorothiazide (Hctz -) 12.5 mg PO DAILY [facility]CLUDE 234 BEDS AT [facility] Last Admin: 06/24/17 10:17 Dose: 12.5 mg Isosorbide Mononitrate (Imdur -) 60 mg PO DAILY [facility]CLUDE 234 BEDS AT [facility] Last Admin: 06/24/17 10:17 Dose: 60 mg Lisinopril (Prinivil) 10 mg PO DAILY [facility] 234 BEDS AT [facility] Last Admin: 06/24/17 10:17 Dose: 10 mg Metoprolol Tartrate (Lopressor -) 25 mg PO BID [facility] 234 BEDS AT [facility] Last Admin: 06/24/17 10:17 Dose: 25 mg Potassium Chloride (K-Dur -) 40 meq PO DAILY [facility]CLUDE 234 BEDS AT [facility] Last Admin: 06/24/17 11:27 Dose: 40 meq Tiotropium [place] (Spiriva -) 1 puff IH DAILY [facility] 234 BEDS AT [facility] Last Admin: 06/24/17 10:27 Dose: Not Given - Objective Vital Signs: Vital Signs Temperature 98.4 F 06/24/17 09:00 Pulse Rate 83 06/24/17 09:00 Respiratory Rate 20 06/24/17 09:00 Blood Pressure 124/66 06/24/17 09:00 O2 Sat by Pulse Oximetry (%) 98 06/24/17 09:00 Constitutional: Yes: No Distress Cardiovascular: Yes: Regular Rate and Rhythm Respiratory: Yes: Diminished Gastrointestinal: Yes: Normal Bowel Sounds, Soft. No: Tenderness Edema: Yes Edema: LLE: 1+, RLE: 1+ Labs: CBC, BMP 06/24/17 05:10 06/24/17 05:10 INR, PTT INR 1.04 (0.82-1.09) 06/23/17 11:12 Problem List - Problems (1) CAD (coronary artery disease) Code(s): I25.10 - ATHSCL HEART DISEASE OF [place] CORONARY ARTERY W/O ANG PCTRS Qualifiers: Coronary Disease-Associated Artery/Lesion type: [place] artery (2) COPD (chronic obstructive pulmonary disease) Code(s): J44.9 - CHRONIC OBSTRUCTIVE PULMONARY DISEASE, UNSPECIFIED Qualifiers: COPD type: chronic bronchitis (3) Chest pain Code(s): R07.9 - CHEST PAIN, UNSPECIFIED Qualifiers: Chest pain type: unspecified Qualified Code(s): R07.9 - Chest pain, unspecified (4) Obesity Code(s): E66.9 - OBESITY, UNSPECIFIED (5) Unstable angina Code(s): I20.0 - UNSTABLE ANGINA Assessment/Plan cardiology eval noted continue with meds NTG prn for chest pain for transfer for cardiac cath
[2017-06-24] MEDS: CLOPIDOGREL BISULFATE 75 MG TABLET (FP) PO SCH (21:19)
[2017-06-24] MEDS: ATORVASTATIN CA 80 MG TABLET (FP) PO SCH (21:19)
[2017-06-25 08:03] VITALS: BP 126/72; PULSE 78; TEMP 97.7
--- NOTE | 2017-06-25 08:15 | PN ---
Progress Note, Physician Chief Complaint: TELE: NSR Feels well. Tolerated BB without issue When walks to bathroom, feels some chest tightness, but not as strong as prior to admission. - Current Medication List Current Medications: Active Medications Acetaminophen (Tylenol -) 650 mg PO Q6H PRN PRN Reason: PAIN Albuterol/Ipratropium (Duoneb -) 1 amp NEB QID PRN PRN Reason: WHEEZING Last Admin: 06/24/17 20:35 Dose: 1 amp Aspirin (Asa -) 81 mg PO DAILY [facility] Last Admin: 06/24/17 10:17 Dose: 81 mg Atorvastatin Calcium (Lipitor -) 80 mg PO HS [facility] Last Admin: 06/24/17 21:19 Dose: 80 mg Budesonide/Formoterol Fumarate (Symbicort 80/4.5mcg -) 2 puff IH BID [facility] Last Admin: 06/24/17 21:46 Dose: 2 puff Clopidogrel Bisulfate (Plavix -) 75 mg PO DAILY@2200 [facility] Last Admin: 06/24/17 21:19 Dose: 75 mg Enoxaparin Sodium (Lovenox -) 80 mg SQ BID [facility] Last Admin: 06/24/17 21:19 Dose: 80 mg Hydrochlorothiazide (Hctz -) 12.5 mg PO DAILY [facility] Last Admin: 06/24/17 10:17 Dose: 12.5 mg Isosorbide Mononitrate (Imdur -) 60 mg PO DAILY [facility] Last Admin: 06/24/17 10:17 Dose: 60 mg Lisinopril (Prinivil) 10 mg PO DAILY [facility] Last Admin: 06/24/17 10:17 Dose: 10 mg Metoprolol Tartrate (Lopressor -) 25 mg PO BID [facility] Last Admin: 06/24/17 21:19 Dose: 25 mg Potassium Chloride (K-Dur -) 40 meq PO DAILY [facility] Last Admin: 06/24/17 11:27 Dose: 40 meq Tiotropium [place] (Spiriva -) 1 puff IH DAILY [facility] Last Admin: 06/24/17 10:27 Dose: Not Given - Objective Vital Signs: Vital Signs Temperature 97.7 F 06/25/17 08:02 Pulse Rate 78 06/25/17 08:02 Respiratory Rate 20 06/25/17 08:02 Blood Pressure 126/72 06/25/17 08:02 O2 Sat by Pulse Oximetry (%) 98 06/25/17 07:55 Constitutional: Yes: No Distress Eyes: Yes: Conjunctiva Clear Cardiovascular: Yes: Regular Rate and Rhythm Respiratory: Yes: CTA Bilaterally Gastrointestinal: Yes: Soft (nontender) Edema: No Neurological: Yes: Alert, Oriented ...Motor Strength: WNL Labs: CBC, BMP 06/24/17 05:10 06/24/17 05:10 INR, PTT INR 1.04 (0.82-1.09) 06/23/17 11:12 - ....Imaging EKG: Image Reviewed Problem List - Problems (1) Unstable angina Code(s): I20.0 - UNSTABLE ANGINA (2) CAD (coronary artery disease) Code(s): I25.10 - ATHSCL HEART DISEASE OF [place] CORONARY ARTERY W/O ANG PCTRS Qualifiers: Coronary Disease-Associated Artery/Lesion type: [place] artery (3) History of pulmonary embolism Code(s): Z86.711 - PERSONAL HISTORY OF PULMONARY EMBOLISM (4) Presence of IVC filter Code(s): Z95.828 - PRESENCE OF OTHER VASCULAR IMPLANTS AND GRAFTS (5) COPD (chronic obstructive pulmonary disease) Code(s): J44.9 - CHRONIC OBSTRUCTIVE PULMONARY DISEASE, UNSPECIFIED Qualifiers: COPD type: chronic bronchitis (6) Other pulmonary aspergillosis Code(s): B44.1 - OTHER PULMONARY ASPERGILLOSIS Assessment/Plan IMP: Known CAD with prior RCA dissection (iatrogenic) requiring several stents 2016 with sx of unstable angina Known RCA stent fracture 2017, managed medically Moderate residual LAD disease History of PEs, IVC filter COPD Hypok+ REC: 1. Continue Lovenox BID. Repeat ECG. Repeat BMP to f/u K+ after repletion. 2. ASA, Plavix, statin, Metoprolol added. Continue Imdur 3. In light of ongoing sx, will plan for transfer to [place] for cath. To remain on telemetry until transfer. Called and spoke to Dr. Mcallister who accepted patient for tx; cath to be done by Dr. Jae Bee at Dr. Bosch's request
[2017-06-25] MEDS: ISOSORBIDE MONONITRATE 60 MG TAB.SR.24H (FP) PO SCH (09:43)
[2017-06-25] MEDS: METOPROLOL TARTRATE 25 MG TABLET (FP) PO SCH (09:43)
[2017-06-25] MEDS: ASPIRIN 81 MG CHEWABLE TABLETS PO SCH (09:43)
[2017-06-25] MEDS: ENOXAPARIN NA (PORCINE) 80 MG/0.8 ML DISP.SYRIN SQ SCH (09:43)
[2017-06-25] MEDS: HYDROCHLOROTHIAZIDE 12.5 MG CAPSULE (FP) PO SCH (09:43)
[2017-06-25] MEDS: LISINOPRIL 10 MG TABLET (FP) PO SCH (09:43)
[2017-06-25] MEDS: BUDESONIDE/FORMETEROL FUMARATE 80/4.5 mcg INHALER IH SCH (09:44)
[2017-06-25] MEDS: TIOTROPIUM BROMIDE 18 MCG CAPSULES IH SCH (09:45)
--- NOTE | 2017-06-25 10:36 | PN ---
Progress Note, Physician Chief Complaint: see dc summary - Current Medication List Current Medications: Active Medications Acetaminophen (Tylenol -) 650 mg PO Q6H PRN PRN Reason: PAIN Albuterol/Ipratropium (Duoneb -) 1 amp NEB QID PRN PRN Reason: WHEEZING Last Admin: 06/24/17 20:35 Dose: 1 amp Aspirin (Asa -) 81 mg PO DAILY [facility] Last Admin: 06/25/17 09:43 Dose: 81 mg Atorvastatin Calcium (Lipitor -) 80 mg PO HS [facility] Last Admin: 06/24/17 21:19 Dose: 80 mg Budesonide/Formoterol Fumarate (Symbicort 80/4.5mcg -) 2 puff IH BID [facility] Last Admin: 06/25/17 09:44 Dose: 2 puff Clopidogrel Bisulfate (Plavix -) 75 mg PO DAILY@2200 [facility] Last Admin: 06/24/17 21:19 Dose: 75 mg Enoxaparin Sodium (Lovenox -) 80 mg SQ BID [facility] Last Admin: 06/25/17 09:43 Dose: 80 mg Hydrochlorothiazide (Hctz -) 12.5 mg PO DAILY [facility] Last Admin: 06/25/17 09:43 Dose: 12.5 mg Isosorbide Mononitrate (Imdur -) 60 mg PO DAILY [facility] Last Admin: 06/25/17 09:43 Dose: 60 mg Lisinopril (Prinivil) 10 mg PO DAILY [facility] Last Admin: 06/25/17 09:43 Dose: 10 mg Metoprolol Tartrate (Lopressor -) 25 mg PO BID [facility] Last Admin: 06/25/17 09:43 Dose: 25 mg Potassium Chloride (K-Dur -) 40 meq PO DAILY [facility] Last Admin: 06/24/17 11:27 Dose: 40 meq Tiotropium [place] (Spiriva -) 1 puff IH DAILY [facility] Last Admin: 06/25/17 09:45 Dose: Not Given - Objective Vital Signs: Vital Signs Temperature 97.7 F 06/25/17 08:02 Pulse Rate 78 06/25/17 08:02 Respiratory Rate 20 06/25/17 08:02 Blood Pressure 126/72 06/25/17 08:02 O2 Sat by Pulse Oximetry (%) 98 06/25/17 07:55 Labs: CBC, BMP 06/24/17 05:10 INR, PTT INR 1.04 (0.82-1.09) 06/23/17 11:12 Problem List - Problems (1) CAD (coronary artery disease) Code(s): I25.10 - ATHSCL HEART DISEASE OF [place] CORONARY ARTERY W/O ANG PCTRS Qualifiers: Coronary Disease-Associated Artery/Lesion type: [place] artery (2) COPD (chronic obstructive pulmonary disease) Code(s): J44.9 - CHRONIC OBSTRUCTIVE PULMONARY DISEASE, UNSPECIFIED Qualifiers: COPD type: chronic bronchitis (3) Chest pain Code(s): R07.9 - CHEST PAIN, UNSPECIFIED Qualifiers: Chest pain type: unspecified Qualified Code(s): R07.9 - Chest pain, unspecified (4) Obesity Code(s): E66.9 - OBESITY, UNSPECIFIED (5) Unstable angina Code(s): I20.0 - UNSTABLE ANGINA
--- NOTE | 2017-06-25 10:49 | DS ---
Physical Examination Vital Signs: Vital Signs Temperature 97.7 F 06/25/17 08:02 Pulse Rate 78 06/25/17 08:02 Respiratory Rate 20 06/25/17 08:02 Blood Pressure 126/72 06/25/17 08:02 O2 Sat by Pulse Oximetry (%) 98 06/25/17 07:55 Constitutional: Yes: No Distress Cardiovascular: Yes: Regular Rate and Rhythm Respiratory: Yes: Diminished Gastrointestinal: Yes: Normal Bowel Sounds, Soft. No: Tenderness Edema: Yes Labs: CBC, BMP 06/24/17 05:10 Discharge Summary Reason For Visit: CHEST PAIN/HX OF PE/HYPERTENSION Current Active Problems CAD (coronary artery disease) (Acute) COPD (chronic obstructive pulmonary disease) (Acute) Chest pain (Acute) History of pulmonary embolism (Acute) Obesity (Acute) Other pulmonary aspergillosis (Acute) Presence of IVC filter (Acute) Unstable angina (Acute) Hospital Course: pt admitted here for chest pain seen by Cardiology As she has continued symptoms of chest pain - she is transferred to [facility] for cardiac cath Condition: Guarded - Instructions Referrals: Kemal Thompson MD [Primary Care Provider] - Disposition: TRANSFER ACUTE CARE/OTHER HOSP - Home Medications Comprehensive Discharge Medication List: Ambulatory Orders Albuterol Sulfate Inhaler - [Ventolin Hfa Inhaler -] 1 - 2 inh PO QID 06/23/17 Atorvastatin Ca [Lipitor] 80 mg PO HS 06/23/17 Budesonide/Formeterol Fumarate [SYMBICORT 80/4.5mcg -] 1 inh PO DAILY 06/23/17 Clopidogrel Bisulfate [Clopidogrel] 75 mg PO DAILY 06/23/17 Ipratropium/Albuterol Sulfate [Combivent Respimat Inhal [place]] 3.5 mg NEB QID PRN 06/23/17 Isosorbide Mononitrate [Imdur -] 60 mg PO DAILY 06/23/17 Lisinopril/Hydrochlorothiazide [Lisinopril-Hctz 10-12.5 mg Tab] 1 each PO DAILY 06/23/17 Tiotropium [place] [Spiriva] 1 inh IH DAILY 06/23/17
[2017-06-25] MEDS: POTASSIUM CHLORIDE TABS 20 MEQ TABLET.ER (FP) PO SCH (11:04)
--- NOTE | 2017-06-25 21:25 | EKG ---
Test Reason : Blood Pressure : / mmHG Vent. Rate : 064 BPM Atrial Rate : 064 BPM P-R Int : 156 ms QRS Dur : 090 ms QT Int : 432 ms P-R-T Axes : 054 -07 -12 degrees QTc Int : 445 ms NORMAL SINUS RHYTHM INFERIOR INFARCT (CITED ON OR BEFORE 23-JUN-2017) ABNORMAL ECG WHEN COMPARED WITH ECG OF 23-JUN-2017 13:29, NO SIGNIFICANT CHANGE WAS FOUND Confirmed by FE VALENZUELA MD ([id number]) on 06/25/2017 9:24:50 PM Referred By: Morelia MARC Confirmed By:FE VALENZUELA MD
--- NOTE | 2017-06-25 21:52 | EKG ---
Test Reason : Blood Pressure : / mmHG Vent. Rate : 086 BPM Atrial Rate : 086 BPM P-R Int : 152 ms QRS Dur : 086 ms QT Int : 400 ms P-R-T Axes : 035 -17 -03 degrees QTc Int : 478 ms POOR DATA QUALITY, INTERPRETATION MAY BE ADVERSELY AFFECTED NORMAL SINUS RHYTHM INFERIOR INFARCT (CITED ON OR BEFORE 23-JUN-2017) CANNOT RULE OUT ANTERIOR INFARCT , AGE UNDETERMINED ABNORMAL ECG WHEN COMPARED WITH ECG OF 23-JUN-2017 09:50, NO SIGNIFICANT CHANGE WAS FOUND Confirmed by FE VALENZUELA MD ([id number]) on 06/25/2017 9:52:37 PM Referred By: Confirmed By:FE VALENZUELA MD
== END 2017-06-25 11:23 | disposition short-term general hospital (02) | DRG 303 ==
LOC: JER 09:44 → JERBED 14:47 → J4W 16:30 → OBSVTOIN 06-24 20:17
PROVIDERS: ADMIT Internal Medicine; ATTEND Internal Medicine
DX: I25.110 Atherosclerotic heart disease of native coronary artery with unstable angina pectoris (principal); B44.1 Other pulmonary aspergillosis; J44.9 Chronic obstructive pulmonary disease, unspecified; I25.2 Old myocardial infarction; E78.00 Pure hypercholesterolemia, unspecified; I10 Essential (primary) hypertension; F17.200 Nicotine dependence, unspecified, uncomplicated; E66.9 Obesity, unspecified; Z68.38 Body mass index [BMI] 38.0-38.9, adult; R07.89 Other chest pain; E87.6 Hypokalemia; Z95.5 Presence of coronary angioplasty implant and graft; Z86.711 Personal history of pulmonary embolism; Z95.828 Presence of other vascular implants and grafts
CPT/HCPCS: 36415; 71045-TC-FY; 80048; 80053; 80061; 82550; 82553; 83721; 83880; 84484; 85025; 85610; 85730; 93005; 93010; 93306-TC; 94640; 99285-25; G0378

== ENCOUNTER 2023-10-28 19:49 | Inpatient (IN) | payer OTHER ==
[2023-10-28] MEDS ORDERED: ACETAMINOPHEN INJECTION 100 ML IVPB ONE (21:21)
[2023-10-28] MEDS ORDERED: diphenhydrAMINE HCL 25 MG CAPSULE (FP) PO ONE (21:21)
[2023-10-28] MEDS ORDERED: FUROSEMIDE 40 MG/4 ML INJECTABLE VIAL ONE (21:21)
[2023-10-28] MEDS: diphenhydrAMINE HCL 25 MG CAPSULE (FP) PO ONE (22:24)
[2023-10-28] MEDS: ACETAMINOPHEN 1000 MG/100 ML BAG IVPB ONE (22:24)
[2023-10-28] MEDS: FUROSEMIDE 40 MG/4 ML INJECTABLE VIAL IVPUSH ONE (22:25)
[2023-10-28 22:34] LABS: BASO % 0.6 % (0-2.0); EOS % 7.3 % (0-4.5); HEMOGLOBIN 12.9 GM/dL (10.7-15.3); LYMPH % 21.8 % (8-40); MCH 30.3 pg (25.7-33.7); MCHC 34.9 g/dl (32.0-36.0); MEAN CELL VOLUME 86.8 fl (80-96); MEAN PLT VOLUME 7.4 fl (7.5-11.1); MONO % 7.3 % (3.8-10.2); PLATELET COUNT 258 10^3/uL (134-434); RBC 4.27 M/mm3 (3.60-5.2); RDW 13.8 % (11.6-15.6); WHITE BLOOD COUNT 8.1 K/mm3 (4.0-10.0)
[2023-10-28 22:43] LABS: INR 1.13 (0.83-1.09); PROTHROMBIN TIME (PATIENT) 12.7 SEC (9.7-13.0)
[2023-10-28 22:57] LABS: CHLORIDE 107 mmol/L (98-107); POTASSIUM 4.5 mmol/L (3.5-5.1); SODIUM 139 mmol/L (136-145)
[2023-10-28 22:58] LABS: CALCIUM 9.1 mg/dL (8.5-10.1)
[2023-10-28 23:00] LABS: ALBUMIN 4.1 g/dl (3.4-5.0); ANION GAP 7 mmol/L (4-13); BLOOD UREA NITROGEN 17.5 mg/dL (7-18); CO2 25 mmol/L (21-32); GLUCOSE,RANDOM 95 mg/dL (74-106)
[2023-10-28 23:03] LABS: CREATININE 1.1 mg/dL (0.55-1.3); SGOT/AST 37 U/L (15-37); SGPT/ALT 40 U/L (13-61)
[2023-10-28 23:05] LABS: BILIRUBIN,TOTAL 0.8 mg/dL (0.2-1); TOT PROT 7.7 g/dl (6.4-8.2)
[2023-10-28 23:06] LABS: ALK PHOS 91 U/L (45-117)
[2023-10-28 23:08] LABS: N-TERMINAL BNP 201.5 pg/ml (5-125)
[2023-10-29] MEDS: CEFTRIAXONE 1,000 MG in DEXTROSE 5%-WATER - 50 ML IVPB ONE (00:13)
[2023-10-29] MEDS ORDERED: CEFTRIAXONE 1 GM/50 ML BAG ONE (00:39)
[2023-10-29] MEDS: VANCOMYCIN PREMIX 1.5 GM 1,500 MG/300 ML BAG IVPB ONE (01:36)
[2023-10-29] MEDS: VANCOMYCIN 1,500 MG in DEXTROSE 5%-WATER - 250 ML IVPB ONE (01:38)
[2023-10-29] MEDS: CEFTRIAXONE 1 GM in DEXTROSE 5%-WATER - 50 ML IVPB SCH (10:29)
[2023-10-29] MEDS: SPIRONOLACTONE 25 MG TABLET PO SCH (10:30)
[2023-10-29] MEDS: RANOLAZINE E.R. 500 MG TABLET (FP) PO SCH (10:30)
[2023-10-29] MEDS: amLODIPine BESYLATE 5 MG TABLET (FP) PO SCH (10:31)
[2023-10-29] MEDS: LOSARTAN POTASSIUM 50 MG TABLET PO SCH (10:31)
[2023-10-29] MEDS: ISOSORBIDE MONONITRATE 60 MG TAB.SR.24H (FP) PO SCH (10:31)
[2023-10-29] MEDS: VANCOMYCIN/WATER 1250 MG 1,250 MG/250 ML BAG IVPB SCH ×3 (15:08→15:10)
[2023-10-29 17:39] VITALS: BMI 42.0
[2023-10-29 18:59] LABS: HEPATITIS B SURFACE AG MATERN NON-REACTIVE (NONREACTIVE)
[2023-10-29 19:30] LABS: HIV INTERPRETATION NEGATIVE (NEGATIVE)
[2023-10-29 19:36] LABS: URINE APPEARANCE CLEAR; URINE BILIRUBIN NEGATIVE (NEGATIVE); URINE COLOR YELLOW; URINE GLUCOSE (UA) NEGATIVE (NEGATIVE); URINE KETONE NEGATIVE (NEGATIVE); URINE LEUK ESTERASE NEGATIVE (NEGATIVE); URINE NITRITE NEGATIVE (NEGATIVE); URINE PROTEIN NEGATIVE (NEGATIVE); URINE UROBILINOGEN 0.2 mg/dL (0.2-1.0)
[2023-10-29] MEDS: ATORVASTATIN CA 40 MG TABLET (FP) PO SCH (22:20)
[2023-10-30] MEDS: ENOXAPARIN NA (PORCINE) 40 MG/0.4 ML DISP.SYRIN SQ SCH (10:03)
[2023-10-30 10:44] LABS: BASO % 0.7 % (0-2.0); EOS % 6.4 % (0-4.5); HEMATOCRIT 36.8 % (32.4-45.2); HEMOGLOBIN 12.8 GM/dL (10.7-15.3); MCH 30.3 pg (25.7-33.7); MCHC 34.8 g/dl (32.0-36.0); MEAN CELL VOLUME 86.9 fl (80-96); MEAN PLT VOLUME 7.5 fl (7.5-11.1); MONO % 6.5 % (3.8-10.2); NEUT % 70.4 % (42.8-82.8); PLATELET COUNT 218 10^3/uL (134-434); RBC 4.23 M/mm3 (3.60-5.2); RDW 13.6 % (11.6-15.6)
[2023-10-30 11:00] LABS: POTASSIUM 3.9 mmol/L (3.5-5.1)
[2023-10-30 11:05] LABS: CALCIUM 8.7 mg/dL (8.5-10.1)
[2023-10-30 11:06] LABS: BLOOD UREA NITROGEN 14.1 mg/dL (7-18); MAGNESIUM 1.6 mg/dL (1.8-2.4)
[2023-10-30 11:09] LABS: CREATININE 0.8 mg/dL (0.55-1.3)
[2023-10-30] MEDS: MAGNESIUM 2GM/50ML STERILE WATER IVPB IVPB ONE (12:46)
[2023-10-30] MEDS: diphenhydrAMINE HCL 25 MG CAPSULE (FP) PO ONE (23:38)
[2023-10-31 09:46] LABS: POTASSIUM 4.1 mmol/L (3.5-5.1)
[2023-10-31 10:20] LABS: BLOOD UREA NITROGEN 14.4 mg/dL (7-18); CALCIUM 8.8 mg/dL (8.5-10.1)
[2023-10-31 10:23] LABS: CREATININE 0.9 mg/dL (0.55-1.3); PHOSPHOROUS 3.2 mg/dL (2.5-4.9)
[2023-10-31] MEDS: POLYETHYLENE GLYCOL (HEALTHYLAX) 3350 17 GM PACKET PO SCH (10:50)
[2023-10-31] MEDS: diphenhydrAMINE HCL 25 MG CAPSULE (FP) PO ONE (12:45)
[2023-10-31] MEDS: ACETAMINOPHEN 1000 MG/100 ML BAG IVPB PRN (14:13)
[2023-11-01] MEDS: hydrOXYzine PAMOATE 25 MG CAPSULE (FP) PO PRN (09:55)
[2023-11-01 10:45] LABS: POTASSIUM 4.6 mmol/L (3.5-5.1)
[2023-11-01 10:51] LABS: CALCIUM 8.9 mg/dL (8.5-10.1)
[2023-11-01 10:52] LABS: BLOOD UREA NITROGEN 15.3 mg/dL (7-18)
[2023-11-01 10:54] LABS: MAGNESIUM 1.7 mg/dL (1.8-2.4)
[2023-11-01 10:55] LABS: CREATININE 0.9 mg/dL (0.55-1.3); PHOSPHOROUS 3.4 mg/dL (2.5-4.9)
[2023-11-01] MEDS: GABAPENTIN 100 MG CAPSULE PO SCH (14:03)
[2023-11-01] MEDS: hydrOXYzine PAMOATE 50 MG CAPSULE (FP) PO SCH (14:03)
[2023-11-01] MEDS ORDERED: hydrOXYzine PAMOATE 25 MG CAPSULE (FP) PO ONE (20:47)
[2023-11-02] MEDS ORDERED: hydrOXYzine PAMOATE 25 MG CAPSULE (FP) PO ONE ×3 (05:07→21:00)
[2023-11-02 09:46] LABS: POTASSIUM 4.6 mmol/L (3.5-5.1)
[2023-11-02 09:50] LABS: CALCIUM 9.6 mg/dL (8.5-10.1); MAGNESIUM 1.9 mg/dL (1.8-2.4)
[2023-11-02 09:53] LABS: PHOSPHOROUS 4.1 mg/dL (2.5-4.9)
[2023-11-03 11:18] LABS: CALCIUM 9.4 mg/dL (8.5-10.1)
[2023-11-03 11:19] LABS: BLOOD UREA NITROGEN 23.1 mg/dL (7-18); MAGNESIUM 1.7 mg/dL (1.8-2.4)
[2023-11-03 11:22] LABS: CREATININE 0.9 mg/dL (0.55-1.3); PHOSPHOROUS 3.6 mg/dL (2.5-4.9)
[2023-11-03 14:40] VITALS: BP 106/65; PULSE 77; RESP 16; TEMP 97.3
[2023-11-03] MEDS: MAGNESIUM SULF 50% (8.12 MEQ/2 ML-1 GM VIAL) IVPB ONE (16:20)
== END 2023-11-03 18:25 | disposition home or self-care (01) | DRG 603 ==
LOC: JER 19:49 → JERBED 10-29 02:27 → J5S 10-29 06:20
PROVIDERS: ADMIT Internal Medicine
DX: L03.116 Cellulitis of left lower limb (principal); B19.10 Unspecified viral hepatitis B without hepatic coma; I11.0 Hypertensive heart disease with heart failure; J44.9 Chronic obstructive pulmonary disease, unspecified; I70.0 Atherosclerosis of aorta; I25.10 Atherosclerotic heart disease of native coronary artery without angina pectoris; E78.5 Hyperlipidemia, unspecified; L40.9 Psoriasis, unspecified; R21 Rash and other nonspecific skin eruption; R20.2 Paresthesia of skin; L29.9 Pruritus, unspecified; I50.9 Heart failure, unspecified; Z95.5 Presence of coronary angioplasty implant and graft
CPT/HCPCS: 36415; 71046-TC-FY; 80048; 80053; 81003; 82550; 82595; 83605; 83735; 83880; 84100; 84443; 84484; 85025; 85610; 85651; 85730; 86038; 86140; 86160; 86431; 86704; 86706; 86803; 86850; 86900; 86901; 87040; 87081; 87340; 87389; 93005; 93010; 93306-TC; 93970-TC; 99285-25; G0480; J0131